=== PATIENT | female | born 1930 | race African-American/Black ===

== ENCOUNTER 2018-07-23 15:13 | Emergency (ER) | payer MEDICAID ==
[~2018-07-23] VITALS: Ht 165.1 cm; Wt 75.0 kg
[2018-07-23] MEDS ORDERED: TETANUS, DIPHTHERIA, PERTUSSIS VAC/PF 0.5ML (>7YR OLD) IM ONE (18:00)
[2018-07-23] MEDS ORDERED: ACETAMINOPHEN 325MG TABLET PO ONE (18:00)
[2018-07-23 19:42] VITALS: BP 177/86
== END 2018-07-23 19:54 | disposition home or self-care (01) ==
LOC: ER 15:13
DX: S00.01XA Abrasion of scalp, initial encounter (principal); F03.90 Unspecified dementia, unspecified severity, without behavioral disturbance, psychotic disturbance, mood disturbance, and anxiety; I10 Essential (primary) hypertension; Z88.0 Allergy status to penicillin; Z98.890 Other specified postprocedural states; W18.39XA Other fall on same level, initial encounter; Y93.89 Activity, other specified; Y92.098 Other place in other non-institutional residence as the place of occurrence of the external cause; Y99.8 Other external cause status
CPT/HCPCS: 90471; 90715; 99284